=== PATIENT | male | born 1960 | race African-American/Black ===

== ENCOUNTER 2018-12-01 09:35 | Emergency (ER) | payer MEDICAID ==
[~2018-12-01] VITALS: Ht 167.6 cm; Wt 64.0 kg
[2018-12-01] MEDS ORDERED: KETOROLAC 60MG/2ML VIAL IM ONE (14:15)
[2018-12-01] MEDS ORDERED: CYCLOBENZAPRINE 10MG TABLET PO ONE (14:15)
[2018-12-01] MEDS ORDERED: AMLODIPINE 5MG TABLET PO ONE (14:45)
[2018-12-01 16:30] VITALS: BP 141/86
== END 2018-12-01 16:49 | disposition home or self-care (01) ==
LOC: ER 09:35
DX: S40.011A Contusion of right shoulder, initial encounter (principal); S30.0XXA Contusion of lower back and pelvis, initial encounter; V49.59XA Passenger injured in collision with other motor vehicles in traffic accident, initial encounter; Y93.89 Activity, other specified; Y92.410 Unspecified street and highway as the place of occurrence of the external cause
CPT/HCPCS: 73030; 96372; 99283; J1885; Z7610